=== PATIENT | male | born 1955 | race Caucasian/White ===

== ENCOUNTER 2020-04-09 11:50 | Outpatient (CLI) | payer MEDICARE, BC, SELFPAY ==
[2020-04-09 12:11] VITALS: BP 125/74; PULSE 74; RESP 17; TEMP 36.2; O2SAT 97
--- NOTE | 2020-04-09 12:30 | DI.RAD_ITS ---
EXAM: XR PAIN CLINIC FLUORO JOINT IN CLINICAL HISTORY: Dx: Ischial bursitis of right side. TECHNIQUE: Fluoroscopy was provided for the referring physician for guidance with performing injecti on procedure. COMPARISON: No exams were available for comparison FINDINGS: Please see procedure note for details. Fluoro Time: 23.7 seconds RADIATION DOSE DELIVERED:
--- NOTE | 2020-04-09 13:02 | PDOC.PAIN_ITS ---
Pain Clinic Procedure Note Procedure Note Procedure Note: Procedure: Right Ischiogluteal bursa injection Pre-operative diagnosis: right ischial bursitis Post-operative diagnosis: same as above Date of Service: April 09, 2020 Patient name: Chavez Martino Provider: Shahram Garcia MD Comments: patient was evaluated by Ms Zora Parker APRN in our pain clinic who referred him for a trial of right ischial bursa injection. Mr Martino was interviewed and the medical record reviewed. There were no medical, pharmacologic, radiographic or other structural contra-indications to attempting fluoroscopically guided ischiogluteal bursa injection. Risks and potential side effects as well as potential benefits of the procedure were reviewed with Mr Martino and his voiced concerns were addressed. After verbal informed consent was obtained, the printed consent form wwas signed. Standard time-out procedure was performed. Mr Martino was placed in a prone position on the fluoroscopy table. Next, auitomated blood pressure cuff and pulse oximeter applied. The skin entry point for approaching the right ischiogluteal bursa was identified under the most advantageous fluoroscopic view and marked. Following thorough Chlorhexadine preparation of the skin and draping, 1% lidocaine infiltration of the skin entry point and subcutaneous tissues, a 22 gauge 3.5'' spinal needle was placed under fluoroscopic guidance into the ischiogluteal bursa. Injection of ~1cc of omnipaque contrast (240) delineated the outline of the ischial bursa and no contrast running into the hamstring tendons. Then, after negative aspiration, 2ml of 2% lidocaine and 40mg of depomedrol was injected into the bursa with an initial reproduction of significant component of his usual pain. (49cc of Omnipaque was wasted) Mr Martino's vital signs were stable throughout the procedure and were as recorded in [facility] docflowsheet by the nursing staff. Follow up plans and appointments were discussed with Mr Martino. Post procedure instructions was given as documented by nursing. Comment: no complications. Follow up with Ms Keith APRN on prn basis. I personally performed the entire procedure. Radha Omalley MD Pain Management
[2020-04-09] MEDS: Omnipaque 240 MG/ML 50 ML BTL (13:06)
[2020-04-09] MEDS: Lidocaine 2% Pres-Free 5 ML VIAL IJ (13:06)
[2020-04-09] MEDS: methylPREDNISolone ACETATE 80 MG/ML VIAL IJ (13:06)
[2020-04-09 13:10] VITALS: BP 131/88; PULSE 67; RESP 16; O2SAT 100
== END 2020-04-09 12:10 ==
PROVIDERS: Visit Provider Internal Medicine
DX: M70.71 Other bursitis of hip, right hip (principal)
CPT/HCPCS: 20610; 77002; J1040; Q9967